=== PATIENT | male | born 2000 | race African-American/Black ===

== ENCOUNTER 2024-05-25 16:46 | Emergency (ER) | payer OTHER, SELFPAY ==
[2024-05-25 16:49] VITALS: BP 155/94; PULSE 108; PULSE 89; TEMP 36.9; O2SAT 100; O2SAT 99; BMI 30.4
[2024-05-25 16:51] VITALS: PULSE 113; O2SAT 100
--- NOTE | 2024-05-25 16:55 | ECG_ITS ---
The [facility] Test Date: 2024-05-25 Pat Name: IFRAH MURILLO Department: Room: - Gender: Male [employer] Matron: : [id number] Requested By: [id number] Order Number: [id number] Reading MD: ROHAN SMITH M.D. Measurements Intervals [place] Rate: 89 P: 42 [place]: 146 QRS: 75 QRSD: 94 T: 65 QT: 320 QTc: 366 Interpretive Statements 1100 Sinus rhythm 1470 with occasional supraventricular premature complexes 9140 Otherwise normal ECG Compared to the ECG of 09-02-2019 2:15, Supraventricular premature complexes are now present Electronically Signed On 05-25-2024 17:14:36 EDT by ROHAN SMITH M.D.
[2024-05-25 17:00] VITALS: PULSE 104; O2SAT 99
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
[2024-05-25 17:04] LABS: Hematocrit 45.6 % (42.0-54.0); Hemoglobin 15.3 g/dL (14.0-18.0); Mean Corpuscular HGB Conc 33.6 g/dL (29.9-35.2); Mean Corpuscular Volume 89.4 fL (80.0-94.0); Mean Platelet Volume 12.3 fL (9.5-13.5); Platelet Count 120 10^3/uL (150-450); Red Cell Distribution Width 13.5 % (11.0-15.0); White Blood Count 10.4 10^3/uL (4.0-11.0)
[2024-05-25 17:15] LABS: INR 0.99; Prothrombin Time 10.5 sec (9.0-11.6)
[2024-05-25 17:19] LABS: Alanine Aminotransferase 25 U/L (16-63); Albumin Globulin Ratio 0.9; Albumin Level 4.1 g/dL (3.4-5.0); Alkaline Phosphatase 79 U/L (46-116); Anion Gap 15.4; Aspartate Amino Transferase 17 U/L (15-37); BUN Creatinine Ratio 9.1; Bilirubin Total 0.4 mg/dL (0.2-1.0); Carbon Dioxide 27.7 mmol/L (21.0-32.0); Chloride 100 mmol/L (98-107); Estimated GFR (African America >60 (>=60 mL/min/1.73m^2); Estimated GFR (Non-African Ame >60 (>=60 mL/min/1.73m^2); Ethanol <3 mg/dL; Globulin 4.5 g/dL; Glucose 108 mg/dL (74-106); Potassium 4.1 mmol/L (3.5-5.1); Sodium 139 mmol/L (136-145); Total Protein 8.6 g/dL (6.4-8.2); Troponin I High Sensitivity 6.5 pg/mL (4.0-76.1)
[2024-05-25 17:25] LABS: Lymphocytes Absolute Manual 1.76 10^3/uL (1.20-3.80); Monocytes Absolute Manual 1.04 10^3/uL (0.30-0.80); Segmented Neut Absolute Manual 7.48 10^3/uL (1.4-6.5)
[2024-05-25 17:30] VITALS: BP 134/78; PULSE 101; O2SAT 99
== END 2024-05-25 17:46 | disposition home or self-care (01) ==
PROVIDERS: Emergency Provider Emergency Medicine
DX: Z02.89 Encounter for other administrative examinations (principal); R07.89 Other chest pain
CPT/HCPCS: 36415; 71045; 80053; 80320; 84484; 85007; 85027; 85610; 93005; 99285